=== PATIENT | male | born 1930 | race Caucasian/White ===

== ENCOUNTER → 2017-02-04 | Outpatient (CLI) | payer MEDICARE, MEDICAID ==
[2017-02-04 12:41] LABS: Urine Bilirubin Negative (Negative); Urine Blood Negative /uL (Negative); Urine Color Yellow (Yellow); Urine Glucose Normal (Normal); Urine Ketone Negative (Negative); Urine Nitrite Negative (Negative); Urine Urobilinogen Normal (Negative); Urine pH 5.5 (5.0-8.0)
[2017-02-04 12:51] LABS: Basophils # (auto) 0 uL; Basophils % (auto) 0.3 % (0.0-2.0); DEFINITIVE VIEW TRANSMISSION; Eosinophils # (auto) 0.1 uL; Hemoglobin 7.9 g/dL (13.5-17.5); Monocytes # (auto) 0.2 uL
[2017-02-04 13:12] LABS: BUN/Creatinine Ratio 18.1; Calcium 8.5 mg/dL (8.5-10.1); Potassium 4.7 mmol/L (3.5-5.1)
[2017-02-04 13:43] LABS: Eosinophils % (auto) 2.1 % (0.0-7.0); Hematocrit 21.6 % (41.0-53.0); Lymphocytes # (auto) 0.5 uL; Lymphocytes % (auto) 12.9 % (10.0-50.0); Mean Corpuscular Hemoglobin 34.8 pg (28.0-32.0); Mean Corpuscular Hgb Conc. 36.5 g/dL (32.0-36.0); Mean Corpuscular Volume 95.4 fL (80.0-100.0); Mean Platelet Volume 7.8 fL (7.4-10.4); Neutrophils # (auto) 3.4 uL; Neutrophils % (auto) 80.7 % (37.0-80.0); Platelet Count (auto) 162 10^3/uL (140-450); Red Cell Distribution Width 16.9 % (11.6-16.0); White Blood Cell 4.2 10^3/uL (4.4-10.8)
== END | disposition home or self-care (01) ==
LOC: LAB 08:33
PROVIDERS: ATTEND Internal Medicine Cardiovascular Disease
DX: I10 Essential (primary) hypertension (principal); E78.00 Pure hypercholesterolemia, unspecified; K74.1 Hepatic sclerosis; E11.9 Type 2 diabetes mellitus without complications; R97.20 Elevated prostate specific antigen [PSA]; R53.81 Other malaise; E03.9 Hypothyroidism, unspecified; D64.9 Anemia, unspecified; E55.9 Vitamin D deficiency, unspecified; N39.0 Urinary tract infection, site not specified
CPT/HCPCS: 36415; 80048; 80061; 81003; 82306; 83036; 84153; 84403; 84443; 85025

== ENCOUNTER → 2018-05-15 | Outpatient (CLI) | payer OTHER, MEDICAID | END | disposition home or self-care (01) | LOC: Rad HDHVI 08:54 | PROVIDERS: ATTEND Internal Medicine | DX: Z01.810 Encounter for preprocedural cardiovascular examination (principal); I10 Essential (primary) hypertension; I07.1 Rheumatic tricuspid insufficiency; I70.0 Atherosclerosis of aorta; Z89.9 Acquired absence of limb, unspecified | CPT/HCPCS: 93306 ==

== ENCOUNTER → 2018-06-03 | Outpatient (CLI) | payer OTHER, MEDICAID ==
[~2018-06-03] VITALS: Ht 180.3 cm; Wt 76.7 kg
[~2018-06-03] MED LIST: ADENOSINE 64 MG in GIVE UN-DILUTED 0 ML IV ONE; ADENOSINE 90 MG/30 ML INJ IV ONE
== END | disposition home or self-care (01) ==
LOC: Rad HDHVI 08:06
PROVIDERS: ATTEND Internal Medicine Cardiovascular Disease
DX: I12.9 Hypertensive chronic kidney disease with stage 1 through stage 4 chronic kidney disease, or unspecified chronic kidney disease (principal); N18.4 Chronic kidney disease, stage 4 (severe); M10.9 Gout, unspecified; R41.3 Other amnesia; Z86.79 Personal history of other diseases of the circulatory system
CPT/HCPCS: 78452; 93005; 96374; 96375; A9500; J0153

== ENCOUNTER → 2018-07-10 | Outpatient (CLI) | payer OTHER, MEDICAID ==
[2018-07-10 10:30] VITALS: BP 173/76
[2018-07-10 11:02] VITALS: BP 159/76
[2018-07-10 12:01] LABS: Basophils # (auto) 0 uL; Eosinophils # (auto) 0.1 uL; Eosinophils % (auto) 1.8 % (0.0-7.0); Monocytes # (auto) 0.2 uL; Neutrophils # (auto) 4.2 uL; Nucleated Red Blood Cells % 0.1 %; Platelet Count (auto) 150 10^3/uL (140-450); Red Cell Distribution Width 17.6 % (11.8-14.3); White Blood Cell 5.2 10^3/uL (4.4-10.8)
[2018-07-10 12:04] LABS: Basophils % (auto) 0.6 % (0.0-2.0); Hematocrit 27.8 % (41.0-53.0); Hemoglobin 10.1 g/dL (13.5-17.5); Lymphocytes # (auto) 0.7 uL; Lymphocytes % (auto) 12.6 % (10.0-50.0); Mean Corpuscular Hemoglobin 34.8 pg (28.0-32.0); Mean Corpuscular Hgb Conc. 36.3 g/dL (32.0-36.0); Mean Corpuscular Volume 95.7 fL (80.0-100.0); Monocytes % (auto) 4.1 % (0.0-12.0); Neutrophils % (auto) 80.9 % (37.0-80.0)
[2018-07-10 12:22] LABS: INR 0.98 (0.9-1.15); Partial Thromboplastin Time 23.8 sec (23.78-33.04); Prothrombin Time 10.5 sec (9.27-12.13)
[2018-07-10 13:17] LABS: BUN/Creatinine Ratio 16.7; Calcium 8.1 mg/dL (8.5-10.1); Potassium 4.8 mmol/L (3.5-5.1)
== END | disposition home or self-care (01) ==
LOC: Rad HDHVI 10:14
PROVIDERS: ATTEND Internal Medicine Cardiovascular Disease
DX: Z01.818 Encounter for other preprocedural examination (principal); I25.10 Atherosclerotic heart disease of native coronary artery without angina pectoris; R94.31 Abnormal electrocardiogram [ECG] [EKG]; D64.9 Anemia, unspecified; R79.1 Abnormal coagulation profile; I10 Essential (primary) hypertension
CPT/HCPCS: 36415; 71046; 80048; 85025; 85610; 85730; 93005; G0463

== ENCOUNTER → 2018-07-27 | Outpatient (CLI) | payer OTHER, MEDICAID ==
[~2018-07-27] MED LIST changes: -ADENOSINE 64 MG in GIVE UN-DILUTED 0 ML IV ONE; -ADENOSINE 90 MG/30 ML INJ IV ONE; +ALLO300T2 PO; +FERR-20 PO; +FOLI1TAB6 PO; +IRBE300T46 PO; +methylPREDNISolone SOD SUCC 125 MG/2 ML VL IV ONE; +methylPREDNISolone SOD SUCC 125 MG/2 ML VL ONE
[2018-07-27 12:08] VITALS: BP 144/61
[2018-07-27 12:40] VITALS: BP 132/57
== END | disposition home or self-care (01) ==
LOC: CHF HDHVI 12:28
PROVIDERS: ATTEND Internal Medicine Cardiovascular Disease
DX: R21 Rash and other nonspecific skin eruption (principal); T50.905A Adverse effect of unspecified drugs, medicaments and biological substances, initial encounter; R60.9 Edema, unspecified; I25.10 Atherosclerotic heart disease of native coronary artery without angina pectoris; I12.9 Hypertensive chronic kidney disease with stage 1 through stage 4 chronic kidney disease, or unspecified chronic kidney disease; E11.22 Type 2 diabetes mellitus with diabetic chronic kidney disease; N18.4 Chronic kidney disease, stage 4 (severe); I70.0 Atherosclerosis of aorta; E03.9 Hypothyroidism, unspecified; K74.1 Hepatic sclerosis; E78.00 Pure hypercholesterolemia, unspecified; K57.30 Diverticulosis of large intestine without perforation or abscess without bleeding; M10.9 Gout, unspecified; I07.1 Rheumatic tricuspid insufficiency; Z87.891 Personal history of nicotine dependence; Z95.1 Presence of aortocoronary bypass graft; Z86.79 Personal history of other diseases of the circulatory system; Z87.440 Personal history of urinary (tract) infections; Z89.9 Acquired absence of limb, unspecified
CPT/HCPCS: 96374; G0463; J2930

== ENCOUNTER → 2018-12-09 | Outpatient (CLI) | payer OTHER, MEDICAID ==
[~2018-12-09] MED LIST changes: -methylPREDNISolone SOD SUCC 125 MG/2 ML VL IV ONE; -methylPREDNISolone SOD SUCC 125 MG/2 ML VL ONE
== END | disposition home or self-care (01) ==
LOC: Rad HDHVI 07:58
PROVIDERS: ATTEND Internal Medicine Cardiovascular Disease
DX: I07.1 Rheumatic tricuspid insufficiency (principal); I25.10 Atherosclerotic heart disease of native coronary artery without angina pectoris; Z95.1 Presence of aortocoronary bypass graft
CPT/HCPCS: 93306

== ENCOUNTER → 2019-01-05 | Outpatient (CLI) | payer OTHER, MEDICAID ==
[~2019-01-05] VITALS: Ht 180.3 cm; Wt 70.3 kg
[~2019-01-05] MED LIST changes: +ADENOSINE 59 MG in GIVE UN-DILUTED 0 ML IV ONE; +ADENOSINE 90 MG/30 ML INJ IV ONE
== END | disposition home or self-care (01) ==
LOC: Rad HDHVI 07:37
PROVIDERS: ATTEND Internal Medicine Cardiovascular Disease
DX: R06.02 Shortness of breath (principal); I10 Essential (primary) hypertension
CPT/HCPCS: 78452; 93005; 96374; 96375; A9500; J0153

== ENCOUNTER → 2019-02-10 | Outpatient (CLI) | payer OTHER, MEDICAID ==
[~2019-02-10] MED LIST changes: -ADENOSINE 59 MG in GIVE UN-DILUTED 0 ML IV ONE; -ADENOSINE 90 MG/30 ML INJ IV ONE; +IOHEXOL 350 MG/ML 100ML IJ ONE; +SOD CHL 0.45% 1,000 ML IV ONE; +SODIUM BICARBONATE 8.4 % INJ 50ML VIAL IV ONE
[2019-02-10 10:10] VITALS: BP 107/55
--- NOTE | 2019-02-10 10:10 | NUR ---
CHF PT ARRIVED AT [facility] CT OF THE CHEST.ABD/PEL, PT A/O X 3 , V/S OBTAINED
--- NOTE | 2019-02-10 10:35 | NUR ---
IV insertion IV access obtained, via clean sterile technique by inserting gauge catheter at after attempt(s). IV secured properly. No trauma to site. Patient tolerated procedure well.
--- NOTE | 2019-02-10 12:17 | NUR ---
LABS PT IS ON DIALYSIS CURRENTLY HAS MARGE CATHETER TO [facility]. CONCERNED ABOUT CT SCAN WITH IV CONTRAST. MD GIMENEZ UPDATED WITH LABS, RECEIVED ORDER FOR 0.45 NS WITH 1 AMP OF SODIUM BICARB AT 250 ML/HR4 X 2 HR. 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
--- NOTE | 2019-02-10 14:55 | NUR ---
IV removal IV DC'd with sterile technique, catheter fully intact. Pressure dressing applied to site. Patient tolerated procedure well. Discharged with aftercare instructions per MD. NOTE:
--- NOTE | 2019-02-10 15:04 | NUR ---
Discharge Instructions See e-MAR for any mediations given with this visit. Patient education given on disease process. Patient verbalized understanding. Previous labs reviewed. Patient discharged in stable condition with after care instructions and follow up appointment. MEDICATIONS 1309 START TIME 0.45 NS WITH 1 AMP SODIUM BICARBONATE @250ML/HR X 2 1505 STOP TIME 0.45NS
[2019-02-10 16:22] VITALS: BP 115/54
== END | disposition home or self-care (01) ==
LOC: Rad HDHVI 09:45
PROVIDERS: ATTEND Internal Medicine Cardiovascular Disease
DX: I12.0 Hypertensive chronic kidney disease with stage 5 chronic kidney disease or end stage renal disease (principal); N18.6 End stage renal disease; R94.4 Abnormal results of kidney function studies; R63.4 Abnormal weight loss; Z95.1 Presence of aortocoronary bypass graft; Z99.2 Dependence on renal dialysis
CPT/HCPCS: 36415; 71260; 74177; 82565; 96365; 96366; G0463; Q9967

== ENCOUNTER → 2019-05-12 | Outpatient (CLI) | payer OTHER, MEDICAID ==
[~2019-05-12] MED LIST changes: -IOHEXOL 350 MG/ML 100ML IJ ONE; -SOD CHL 0.45% 1,000 ML IV ONE; -SODIUM BICARBONATE 8.4 % INJ 50ML VIAL IV ONE
== END | disposition home or self-care (01) ==
LOC: Rad HDHVI 09:19
PROVIDERS: ATTEND Internal Medicine Cardiovascular Disease
DX: I08.8 Other rheumatic multiple valve diseases (principal); I11.9 Hypertensive heart disease without heart failure; R00.2 Palpitations
CPT/HCPCS: 93306

== ENCOUNTER → 2019-07-21 | Outpatient (CLI) | payer OTHER, MEDICAID ==
[~2019-07-21] VITALS: Ht 180.3 cm; Wt 68.9 kg
== END | disposition home or self-care (01) ==
LOC: Rad HDHVI 12:14
PROVIDERS: ATTEND Internal Medicine Cardiovascular Disease
DX: I25.10 Atherosclerotic heart disease of native coronary artery without angina pectoris (principal); Z95.1 Presence of aortocoronary bypass graft
CPT/HCPCS: 78472; 96374; 96375; A9505

== ENCOUNTER → 2019-12-20 | Outpatient (CLI) | payer OTHER, MEDICAID ==
[~2019-12-20] MED LIST changes: +IRBE300T43 PO; -IRBE300T46 PO
[2019-12-20 12:03] LABS: Basophils # (auto) 0.1 10 ^3/uL (0-0.2); Basophils % (auto) 0.7 % (0.0-2.0); Eosinophils # (auto) 0.2 10 ^3/uL (0-0.8); Eosinophils % (auto) 2.4 % (0.0-7.0); Hemoglobin 8.7 g/dL (13.5-17.5); Lymphocytes # (auto) 1.7 10 ^3/uL (0.4-5.4); Mean Corpuscular Hemoglobin 36.1 pg (28.0-32.0); Mean Corpuscular Hgb Conc. 36.2 g/dL (32.0-36.0); Mean Corpuscular Volume 99.5 fL (80.0-100.0); Monocytes # (auto) 0.4 10 ^3/uL (0-1.3); Neutrophils # (auto) 5.7 10 ^3/uL (1.6-8.6); Neutrophils % (auto) 70.9 % (37.0-80.0); Nucleated Red Blood Cells % 0.1 %; Platelet Count (auto) 248 10^3/uL (140-450); Red Blood Cells 2.41 10^6/uL (4.5-5.90); Red Cell Distribution Width 18.8 % (11.8-14.3)
[2019-12-20 12:12] LABS: BUN/Creatinine Ratio 7.6; Calcium 9.1 mg/dL (8.5-10.1); Potassium 4.6 mmol/L (3.5-5.1)
== END | disposition home or self-care (01) ==
LOC: LAB 08:25
PROVIDERS: ATTEND Internal Medicine Cardiovascular Disease
DX: I10 Essential (primary) hypertension (principal); Z79.899 Other long term (current) drug therapy
CPT/HCPCS: 36415; 80048; 85025

== ENCOUNTER 2020-01-12 06:35 | Day surgery (SDC) | payer OTHER, MEDICAID ==
[2020-01-12] VITALS (16 sets, daily range): BP systolic 118–135; BP diastolic 61–77
[~2020-01-12 06:35] MED LIST changes: -IRBE300T43 PO; +IRBE300T46 PO
[2020-01-12 07:51] LABS: Hemoglobin 7.2 g/dL (13.5-17.5)
[2020-01-12 07:53] LABS: Hematocrit 19.8 % (41.0-53.0)
--- NOTE | 2020-01-12 08:15 | NUR ---
Received pt. from care of HERNAN Garcia. Pt. lying semi-Hawk's on gurney and is oriented to person, place and event. IV intact on RIGHT forearm with NSS infusing at TKO; site benign. Denies discomfort. Remains stable with NAD noted. Prepared for blood transfusion.
--- NOTE | 2020-01-12 09:45 | NUR ---
Dr. Sheets notified re: patient's H&H result from this morning. Order received to transfuse total of 2 units PRBCs instead of 1 unit today.
--- NOTE | 2020-01-12 10:00 | NUR ---
Pt.'s notified re: order for total of 2 units blood to be transfused today; verbalized understanding and is compliant. Pt. remains stable with NAD and denies discomfort.
--- NOTE | 2020-01-12 11:25 | NUR ---
Transfusion of first unit of blood complete with no reaction. IV site on RIGHT forearm is intact with site benign. Pt. remains stable and continues to deny discomfort. NAD noted.
--- NOTE | 2020-01-12 13:13 | NUR ---
Assisted up to [facility] on mary. Cardiac diet lunch given. Pt. states feels "pretty good" and tolerated activity well. Blood transfusion in progress; IV site benign. waiting in [facility] lobby and is aware of pt. status. [place] and drink provided for her.
--- NOTE | 2020-01-12 13:28 | NUR ---
Pt. ate 95% of lunch. Remains stable with NAD and continues to deny discomfort. Blood transfusion in progress and is almost complete.
--- NOTE | 2020-01-12 13:40 | NUR ---
Discharge instructions given to pt. and . Both verbalized understanding and are compliant. states will follow-up with Dr. Sheets in office as instructed.
--- NOTE | 2020-01-12 13:55 | NUR ---
IV discontinued with cath intact; site dressed with DSD and coban. Pt. assisted up to bathroom to void with minimal assist.
--- NOTE | 2020-01-12 14:18 | NUR ---
Discharged to home in c/o via w/c to POV. Pt. remains stable at time of discharge. NAD noted or anticipated.
== END 2020-01-12 14:15 | disposition home or self-care (01) ==
LOC: CATH 06:35
PROVIDERS: ATTEND Internal Medicine Cardiovascular Disease
DX: D64.9 Anemia, unspecified (principal); Z98.890 Other specified postprocedural states; Z11.59 Encounter for screening for other viral diseases
CPT/HCPCS: 36415; 36430; 85014; 85018; 86850; 86900; 86901; 86920; 87635; J7040; P9016

== ENCOUNTER → 2020-04-17 | Outpatient (CLI) | payer OTHER, MEDICAID ==
[~2020-04-17] MED LIST changes: +IRBE300T43 PO; -IRBE300T46 PO
== END | disposition home or self-care (01) ==
LOC: LAB 09:24
PROVIDERS: ATTEND Internal Medicine Cardiovascular Disease
DX: Z01.812 Encounter for preprocedural laboratory examination (principal)
CPT/HCPCS: 86850; 86900; 86901

== ENCOUNTER → 2020-04-17 | Outpatient (CLI) | payer OTHER, MEDICAID | END | disposition home or self-care (01) | LOC: Rad HDHVI 08:11 | PROVIDERS: ATTEND Internal Medicine Cardiovascular Disease | DX: I70.0 Atherosclerosis of aorta (principal); Z01.812 Encounter for preprocedural laboratory examination | CPT/HCPCS: 71046 ==

== ENCOUNTER 2020-05-05 06:51 | Day surgery (SDC) | payer OTHER, MEDICAID ==
[2020-05-05] VITALS (7 sets, daily range): BP systolic 106–144; BP diastolic 49–64
== END 2020-05-05 13:36 | disposition home or self-care (01) ==
LOC: CATH 06:51
PROVIDERS: ATTEND Internal Medicine Cardiovascular Disease
DX: D64.9 Anemia, unspecified (principal); Z98.890 Other specified postprocedural states; Z20.828 Contact with and (suspected) exposure to other viral communicable diseases
CPT/HCPCS: 36430; 86850; 86900; 86901; 86920; P9016; U0003

== ENCOUNTER → 2020-10-02 | Outpatient (CLI) | payer OTHER, MEDICAID | END | disposition home or self-care (01) | LOC: Rad HDHVI 14:41 | PROVIDERS: ATTEND Internal Medicine Cardiovascular Disease | DX: R07.89 Other chest pain (principal); R06.02 Shortness of breath | CPT/HCPCS: 93306 ==

== ENCOUNTER → 2020-10-04 | Outpatient (CLI) | payer OTHER, MEDICAID ==
[~2020-10-04] VITALS: Ht 180.3 cm; Wt 77.6 kg
[~2020-10-04] MED LIST changes: +ADENOSINE 65 MG in GIVE UN-DILUTED 0 ML IV ONE; +ADENOSINE 90 MG/30 ML INJ IV ONE
== END | disposition home or self-care (01) ==
LOC: Rad HDHVI 13:19
PROVIDERS: ATTEND Internal Medicine Cardiovascular Disease
DX: Z01.810 Encounter for preprocedural cardiovascular examination (principal); I25.10 Atherosclerotic heart disease of native coronary artery without angina pectoris; N18.6 End stage renal disease; Z82.49 Family history of ischemic heart disease and other diseases of the circulatory system
CPT/HCPCS: 78452; 93005; 96374; 96375; A9500; J0153

== ENCOUNTER 2020-12-04 07:20 | Day surgery (SDC) | payer OTHER, MEDICAID ==
[2020-12-01 10:31] LABS: Eosinophils # (auto) 0.1 10 ^3/uL (0-0.8); Hematocrit 22.1 % (41.0-53.0); Hemoglobin 8.1 g/dL (13.5-17.5); Mean Corpuscular Hgb Conc. 36.5 g/dL (32.0-36.0); Monocytes # (auto) 0.4 10 ^3/uL (0-1.3); Monocytes % (auto) 5.5 % (0.0-12.0); Nucleated Red Blood Cells % 0.1 %
[2020-12-01 10:33] LABS: Basophils # (auto) 0.1 10 ^3/uL (0-0.2); Basophils % (auto) 0.7 % (0.0-2.0); Eosinophils % (auto) 1.1 % (0.0-7.0); Lymphocytes # (auto) 1.3 10 ^3/uL (0.4-5.4); Lymphocytes % (auto) 16.2 % (10.0-50.0); Mean Corpuscular Hemoglobin 34.4 pg (28.0-32.0); Mean Corpuscular Volume 94.2 fL (80.0-100.0); Neutrophils # (auto) 5.9 10 ^3/uL (1.6-8.6); Neutrophils % (auto) 76.5 % (37.0-80.0); Platelet Count (auto) 271 10^3/uL (140-450); Red Blood Cells 2.35 10^6/uL (4.5-5.90); White Blood Cell 7.7 10^3/uL (4.4-10.8)
[2020-12-04] VITALS (11 sets, daily range): BP systolic 122–147; BP diastolic 59–74
[~2020-12-04 07:20] MED LIST changes: -ADENOSINE 65 MG in GIVE UN-DILUTED 0 ML IV ONE; -ADENOSINE 90 MG/30 ML INJ IV ONE
== END 2020-12-04 15:24 | disposition home or self-care (01) ==
LOC: CATH 07:20
PROVIDERS: ATTEND Internal Medicine Cardiovascular Disease
DX: D64.9 Anemia, unspecified (principal); Z20.822 Contact with and (suspected) exposure to COVID-19; Z98.890 Other specified postprocedural states; Z79.899 Other long term (current) drug therapy; Z95.1 Presence of aortocoronary bypass graft
CPT/HCPCS: 36415; 36430; 85025; 86850; 86900; 86901; 86920; J7030; P9016; U0003